=== PATIENT | male | born 1960 | race Two or more races ===

== ENCOUNTER → 2025-05-03 | Outpatient (CLI) | payer BC, SELFPAY ==
--- NOTE | 2025-05-03 10:15 | XR_ITS ---
Examination: Prostate sonography TECHNIQUE: Grayscale sonographic images prostate May 03, 2025 0956 hours INDICATIONS: Elevated PSA with painful urination 4 months FINDINGS: Prostate 5.7 x 4.5 x 5.9 cm volume 80 cc Cyst in the mid prostate 17 x 14 mm Multiple calcifications No solid nodules No bladder mass or bladder prevoid volume 166 cc IMPRESSION: Significant prostatomegaly No solid prostate nodules
== END | disposition home or self-care (01) ==
PROVIDERS: PCP Physician Assistant; Referring Provider Physician Assistant; Visit Provider Physician Assistant
DX: N40.0 Benign prostatic hyperplasia without lower urinary tract symptoms (principal)
CPT/HCPCS: 76873